=== PATIENT | female | born 1985 | race African-American/Black ===

== ENCOUNTER 2018-11-08 11:10 | Observation (INO) | payer OTHER ==
[~2018-11-08] VITALS: Ht 167.6 cm; Wt 69.8 kg
[~2018-11-08 11:10] MED LIST: FERR27TA
[2018-11-08] MEDS ORDERED: DIPHTH/TET/ACEL PERTUSS (ADULT) 0.5 ML VIAL IM* ONE (13:30)
[2018-11-08] MEDS ORDERED: CIPROFLOXACIN 400MG/D5W 200 ML IVPB ONE (14:30)
[2018-11-08] MEDS ORDERED: ONDANSETRON 4 MG INJ IV PRN ×2 (16:00→17:30)
[2018-11-08] MEDS ORDERED: ACETAMINOPHEN 325 MG TAB PO PRN ×2 (16:00→17:30)
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
[2018-11-08] MEDS ORDERED: HYDROCODONE/APAP (5/325) TAB PO PRN (17:30)
[2018-11-08] MEDS ORDERED: NACL 0.9% 3 ML SYG IV SCH (17:30)
[2018-11-08] MEDS ORDERED: DOCUSATE SODIUM 100 MG CAP PO PRN (17:30)
[2018-11-08] MEDS ORDERED: morphine 2 MG INJ IV PRN (17:30)
[2018-11-08 19:59] VITALS: Ht 167.6 cm; Wt 69.8 kg
[2018-11-08 20:00] VITALS: BP 104/57; PULSE 80
[2018-11-09] MEDS: LEVOFLOXACIN 500MG/D5W (PMX) 100 ML IVPB SCH ×2 (00:29→17:19)
[2018-11-09 02:00] VITALS: BP 113/67; PULSE 67
[2018-11-09] MEDS ORDERED: PANTOPRAZOLE 40 MG INJ IV SCH (06:00)
--- NOTE | 2018-11-09 06:52 | QN ---
Documentation Comment h and p done on 11/08/18 RONAK LUBIN MD November 09, 2018 06:52
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
[2018-11-09 09:22] VITALS: BP 160/62; PULSE 86; RESP 18
[2018-11-09] MEDS: SOD FERRIC GLUC COMPLX 125 MG in SOD CHLORIDE 0.9% 100 ML IVPB SCH (12:29)
[2018-11-09 14:00] VITALS: BP 106/56; PULSE 70; RESP 18
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
[2018-11-09 20:00] VITALS: BP 119/67; PULSE 91; RESP 18
[2018-11-10 02:00] VITALS: BP 99/59; PULSE 62; RESP 18
[2018-11-10] MEDS: PANTOPRAZOLE (EC) 40 MG TAB PO SCH (05:34)
[2018-11-10 08:00] VITALS: BP 130/64; PULSE 74; RESP 20
[2018-11-10] MEDS: SOD FERRIC GLUC COMPLX 125 MG in SOD CHLORIDE 0.9% 100 ML IVPB SCH (12:13)
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
[2018-11-10 14:00] VITALS: BP 126/62; PULSE 64; RESP 18
[2018-11-10] MEDS: SERTRALINE 50 MG TAB PO SCH (14:04)
[2018-11-10] MEDS: LEVOFLOXACIN 500MG/D5W (PMX) 100 ML IVPB SCH (17:36)
[2018-11-10 20:00] VITALS: BP 111/62; PULSE 63; RESP 18
[2018-11-11 02:00] VITALS: BP 113/62; PULSE 66; RESP 18
[2018-11-11] MEDS: PANTOPRAZOLE (EC) 40 MG TAB PO SCH (06:03)
[2018-11-11 08:31] VITALS: BP 115/52; PULSE 58; RESP 18
[2018-11-11] MEDS: SERTRALINE 50 MG TAB PO SCH (09:56)
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
[2018-11-11] MEDS ORDERED: SERT50TA6 PO (11:54)
[2018-11-11] MEDS ORDERED: FER325 PO (11:54)
[2018-11-11] MEDS ORDERED: LEVO500T48 PO (11:54)
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
[2018-11-11] MEDS: SOD FERRIC GLUC COMPLX 125 MG in SOD CHLORIDE 0.9% 100 ML IVPB SCH ×2 (13:00→13:08)
[2018-11-11 14:23] VITALS: BP 122/76; PULSE 63
== END 2018-11-11 15:30 | disposition home or self-care (01) ==
LOC: FTE 11:10 → PP2 15:54 → EDBEDREQSVC 16:19
PROVIDERS: ADMIT Internal Medicine; ATTEND Internal Medicine
DX: D50.9 Iron deficiency anemia, unspecified (principal); N39.0 Urinary tract infection, site not specified; S50.811A Abrasion of right forearm, initial encounter; Y09 Assault by unspecified means; F17.210 Nicotine dependence, cigarettes, uncomplicated; Z23 Encounter for immunization
CPT/HCPCS: 36430; 76856; 80048; 80053; 80307; 81001; 81025; 82607; 82728; 82746; 83010; 83036; 83540; 83615; 83690; 84466; 84702; 85025; 85045; 85610; 85730; 86850; 86880; 86885; 86900; 86901; 86920; 87086; 90471; 90715; 96374; C9113; J0744; J1956; J2916; P9016; Z7500; Z7502; Z7610; G0378